=== PATIENT | male | born 1985 | race Caucasian/White ===

== ENCOUNTER 2025-01-21 10:42 | Emergency (ER) | payer MEDICARE, OTHER ==
[~2025-01-21] VITALS: Ht 180.3 cm; Wt 72.3 kg
[2025-01-21 12:17] VITALS: BP 111/89
== END 2025-01-21 12:18 | disposition home or self-care (01) ==
LOC: ED 10:42
DX: L50.9 Urticaria, unspecified (principal); Z88.0 Allergy status to penicillin; Z88.2 Allergy status to sulfonamides; Z88.5 Allergy status to narcotic agent
CPT/HCPCS: 99282; J8540